=== PATIENT | female | born 1970 | race African-American/Black ===

== ENCOUNTER → 2017-10-30 | Outpatient (CLI) | payer BC, OTHER | LOC: RAD 09:59 | DX: Z12.31 Encounter for screening mammogram for malignant neoplasm of breast (principal) ==

== ENCOUNTER → 2019-01-03 | Outpatient (CLI) | payer BC, OTHER | LOC: CAT 09:58 | DX: N28.1 Cyst of kidney, acquired (principal); K76.89 Other specified diseases of liver; J98.11 Atelectasis; Z90.710 Acquired absence of both cervix and uterus ==

== ENCOUNTER → 2021-10-22 | Outpatient (CLI) | payer BC, OTHER | LOC: BC 10-17 11:31 | PROVIDERS: ATTEND Obstetrics & Gynecology | DX: Z12.31 Encounter for screening mammogram for malignant neoplasm of breast (principal); N64.89 Other specified disorders of breast ==